=== PATIENT | female | born 1980 | race African-American/Black ===

== ENCOUNTER 2021-02-17 12:34 | Emergency (ER) | payer MEDICAID ==
[~2021-02-17] VITALS: Ht 185.4 cm; Wt 68.0 kg
[2021-02-17] MEDS ORDERED: LORazepam 2MG/ML-1ML VIAL IV ONE (14:45)
[2021-02-17 15:12] LABS: Basophils # (auto) 0 10 ^3/uL (0-0.2); Basophils % (auto) 0.6 % (0.0-2.0); Eosinophils # (auto) 0 10 ^3/uL (0-0.8); Eosinophils % (auto) 0.1 % (0.0-7.0); Hematocrit 30.6 % (36.0-46.0); Hemoglobin 9.2 g/dL (12.2-16.2); Lymphocytes # (auto) 0.7 10 ^3/uL (0.4-5.4); Lymphocytes % (auto) 11.3 % (10.0-50.0); Mean Corpuscular Hemoglobin 24.1 pg (28.0-32.0); Mean Corpuscular Hgb Conc. 30.1 g/dL (32.0-36.0); Mean Corpuscular Volume 80.3 fL (80.0-100.0); Monocytes # (auto) 0.3 10 ^3/uL (0-1.3); Neutrophils # (auto) 4.8 10 ^3/uL (1.6-8.6); Nucleated Red Blood Cells % 0.1 %; Red Blood Cells 3.81 10^6/uL (4.0-5.20); White Blood Cell 5.8 10^3/uL (4.4-10.8)
[2021-02-17 15:13] LABS: Red Cell Distribution Width 20.7 % (11.8-14.3)
[2021-02-17] MEDS ORDERED: SODIUM CHLORIDE 0.9% 1,000 ML IVB ONE (15:15)
[2021-02-17 15:28] LABS: Albumin 3.7 g/dL (3.4-5.0); Anion Gap 19 (5-15); Blood Urea Nitrogen 6 mg/dL (7-18); Calcium 8.1 mg/dL (8.5-10.1); Carbon Dioxide 20 mmol/L (21-32); Chloride 101 mmol/L (98-107); Glucose 70 mg/dL (74-106); Magnesium 1.4 mg/dL (1.6-2.6); Potassium 3.1 mmol/L (3.5-5.1); Sodium 140 mmol/L (136-145)
[2021-02-17 15:30] LABS: BUN/Creatinine Ratio 8.3; GFR African American 114 mL/min; GFR Non-African American 94 mL/min
[2021-02-17 15:35] LABS: Alanine Aminotransferase 40 U/L (13-56); Alkaline Phosphatase 96 U/L (45-117); Aspartate Aminotransferase 71 U/L (15-37); Bilirubin, Total 1.3 mg/dL (0.2-1.0); Total Protein 8.3 g/dL (6.4-8.2)
[2021-02-17 16:25] LABS: Amphetamine Screen, Urine NEGATIVE (NEGATIVE); Barbiturate Scree,Urine NEGATIVE (NEGATIVE); Cannabinoid Screen, Urine NEGATIVE (NEGATIVE); Cocaine Screen, Urine NEGATIVE (NEGATIVE); Opiate Scree,Urine NEGATIVE (NEGATIVE); Phencyclidine Screen, Urine NEGATIVE (NEGATIVE)
[2021-02-17 16:33] LABS: Benzodiazephine Screen, Urine NEGATIVE (NEGATIVE); Urine Bacteria FEW /hpf (None Seen); Urine Blood 1+ /uL (Negative); Urine Specific Gravity 1.022 (1.001-1.035); Urine WBC 4 /hpf (0 - 5)
[2021-02-17] MEDS ORDERED: POTASSIUM EFFERVESENT TAB 25 MEQ PO ONE (17:00)
[2021-02-17] MEDS: MAGNESIUM SULFATE 1GM/100ML 100 ML IV SCH ×3 (17:15→20:50)
[2021-02-18 03:00] VITALS: BP 146/94
== END 2021-02-18 04:23 | disposition home or self-care (01) ==
LOC: ER 12:34 → EDBD 12:34 → ER 02-18 04:23
DX: G93.41 Metabolic encephalopathy (principal); F10.129 Alcohol abuse with intoxication, unspecified; G40.909 Epilepsy, unspecified, not intractable, without status epilepticus; E87.6 Hypokalemia; E83.42 Hypomagnesemia; D64.9 Anemia, unspecified; R11.2 Nausea with vomiting, unspecified; Y90.3 Blood alcohol level of 60-79 mg/100 ml
CPT/HCPCS: 36415; 71045; 80053; 80307; 80320; 81001; 83735; 84484; 84702; 85025; 93005; 96361; 96365; 96366; 96375; 99285; J3475

== ENCOUNTER 2021-04-08 13:33 | Emergency (ER) | payer MEDICAID ==
[~2021-04-08] VITALS: Ht 180.3 cm; Wt 81.6 kg
[2021-04-08 14:08] VITALS: BP 148/101
== END 2021-04-08 17:32 | disposition left against medical advice (07) ==
LOC: ER 13:33 → EDBD 13:33 → ER 17:32
DX: R56.9 Unspecified convulsions (principal); Z53.21 Procedure and treatment not carried out due to patient leaving prior to being seen by health care provider